=== PATIENT | female | born 1950 | race Caucasian/White ===

== ENCOUNTER 2020-03-27 11:40 | Emergency (ER) | payer OTHER ==
[2020-03-27 11:52] VITALS: BP 167/75; PULSE 83; TEMP 98; BMI 27.8
--- NOTE | 2020-03-27 12:30 | PDOC ---
History of Present Illness - General Chief Complaint: Diarrhea Stated Complaint: BOWEL MOVEMENT Time Seen by Provider: 03/27/20 12:01 Past History - Medical History Allergies/Adverse Reactions: Allergies Allergy/AdvReac Type Severity Reaction Status Date / Time erythromycin base Allergy Severe Rash Verified 03/27/20 11:44 [From E-Mycin] tetracycline [Tetracycline] Allergy Severe Rash Verified 03/27/20 11:44 enalaprilat dihydrate Allergy Unknown Rash Verified 03/27/20 11:44 [From Vasotec] memantine HCl [From Namenda] AdvReac Mild Verified 03/27/20 11:44 Home Medications: Ambulatory Orders Aspirin [Baby Aspirin] 81 mg PO DAILY 08/22/11 Nebivolol HCl [Bystolic] 10 mg PO DAILY tablet 12/22/14 levETIRAcetam [Keppra -] 750 mg PO BID tablet 12/21/15 Simvastatin [Zocor -] 20 mg PO HS 12/30/15 Vitamin E 400 unit PO DAILY 02/14/16 Hydrochlorothiazide [Hctz -] 12.5 mg PO DAILY 03/27/20 Losartan Potassium 100 mg PO DAILY 03/27/20 Mirtazapine 7.5 mg PO HS 03/27/20 Vitamin B Complex 1 each PO DAILY 03/27/20 Anemia: No Asthma: No Cancer: Yes (CERVICAL; [facility] 1995) Cardiac Disorders: No CVA: No COPD: No CHF: No Dementia: Yes Diabetes: Yes (DM2) GI Disorders: Yes (FECAL INCONTINENCE;IBS) Disorders: No HTN: Yes Hypercholesterolemia: No Liver Disease: No 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; BRAIN DAMAGE.) Thyroid Disease: No - Surgical History Abdominal Surgery: Yes (TOTAL ABDOMINAL HYSTERCTOMY) Appendectomy: No Cardiac Surgery: No Cholecystectomy: No Lung Surgery: No Neurologic Surgery: Yes (LAMINECTOMY 06/2011) Orthopedic Surgery: Yes (LUMBAR LAMINECTOMY 06/23/11) - Reproductive History Is Patient Now?: No - Psycho-Social/Smoking History Smoking History: Never smoked Have you smoked in the past 12 months: No Number of Cigarettes Smoked Daily: 0 Cigars Per Day: 0 - Substance Abuse Hx (Audit-C & DAST Scrn) How often the patient has a drink containing alcohol: Never Score: In Men: 4 or > Positive; In Women: 3 or > Positive: 0 Screen Result (Pos requires Nsg. Audit-10AR): Negative In the last yr the pt used illegal drug/Rx for NonMed reason: No Score: Yes response is considered Positive: 0 Screen Result (Positive result requires Nsg. DAST-10): Negative *Physical Exam - Vital Signs Last Vital Signs Temp Pulse Resp BP Pulse Ox 98 F 83 18 167/75 99 03/27/20 11:45 03/27/20 11:45 03/27/20 11:45 03/27/20 11:45 03/27/20 11:45 Discharge - Follow up/Referral Referrals: Ricki Maria MD [Primary Care Provider] - - Patient Discharge Instructions - Post Discharge Activity
[2020-03-27] MEDS ORDERED: LACTATED RINGERS SOLUTION 1,000 ML/1,000 ML INFUS.BAG IV STA (12:37)
[2020-03-27 13:20] LABS: BASO % 0.6 % (0-2.0); EOS % 0.8 % (0-4.5); HEMATOCRIT 42.1 % (32.4-45.2); HEMOGLOBIN 14.4 GM/dL (10.7-15.3); LYMPH % 18.8 % (8-40); MCH 30.8 pg (25.7-33.7); MCHC 34.2 g/dl (32.0-36.0); MEAN CELL VOLUME 89.8 fl (80-96); MEAN PLT VOLUME 8.4 fl (7.5-11.1); MONO % 5.8 % (3.8-10.2); PLATELET COUNT 199 K/MM3 (134-434); RBC 4.69 M/mm3 (3.60-5.2); RDW 13.7 % (11.6-15.6); WHITE BLOOD COUNT 8.3 K/mm3 (4.0-10.0)
[2020-03-27 13:26] LABS: URINE APPEARANCE CLEAR; URINE BILIRUBIN NEGATIVE (NEGATIVE); URINE COLOR YELLOW; URINE GLUCOSE (UA) NEGATIVE (NEGATIVE); URINE KETONE NEGATIVE (NEGATIVE); URINE LEUK ESTERASE NEGATIVE (NEGATIVE); URINE NITRITE NEGATIVE (NEGATIVE); URINE PROTEIN NEGATIVE (NEGATIVE); URINE UROBILINOGEN 0.2 mg/dL (0.2-1.0)
[2020-03-27 13:33] LABS: ALBUMIN 4.7 g/dl (3.4-5.0); BILIRUBIN,TOTAL 0.6 mg/dL (0.2-1); BLOOD UREA NITROGEN 7.3 mg/dL (7-18); CALCIUM 9.7 mg/dL (8.5-10.1); POTASSIUM 4.2 mmol/L (3.5-5.1); TOT PROT 7.2 g/dl (6.4-8.2)
--- NOTE | 2020-03-27 13:49 | PDOC ---
Documentation entered by Johnathon Coyne SCRIBE, acting as scribe for Larisa Reilly MD. Larisa Reilly MD: This documentation has been prepared by the Stanford hardy Aaron, SCRIBE, under my direction and personally reviewed by me in its entirety. I confirm that the documentation accurately reflects all work, treatment, procedures, and medical decision making performed by me. History of Present Illness - General Chief Complaint: Diarrhea Stated Complaint: BOWEL MOVEMENT Time Seen by Provider: 03/27/20 12:01 History Source: Patient Exam Limitations: No Limitations - History of Present Illness Initial Comments: 03/27/20 13:12 The patient is a 69 year old female with a significant PMH of HTN, HLD, seizures, dementia, and osteopenia who presents to the emergency department for diarrhea. Patient reports being awoken by back pain at 9 am which was followed by 1 episode of dark non-melena diarrhea. Patient endorses a history of chronic back pain. Patient denies abdominal pain, lightheadedness, nausea, vomiting, fever, hematuria, or any urinary symptoms. Patient denies any other symptoms. Allergies: erythromycin, tetracycline, enalaprilat dihydrate, memantine HCl Past surgical history: total abdominal hysterectomy, neurologic laminectomy ( 06/2011), lumbar laminectomy (06/23/11) PCP: Ricki Maria MD Past History - Medical History Allergies/Adverse Reactions: Allergies Allergy/AdvReac Type Severity Reaction Status Date / Time erythromycin base Allergy Severe Rash Verified 03/27/20 11:44 [From E-Mycin] tetracycline [Tetracycline] Allergy Severe Rash Verified 03/27/20 11:44 enalaprilat dihydrate Allergy Unknown Rash Verified 03/27/20 11:44 [From Vasotec] memantine HCl [From Namenda] AdvReac Mild Verified 03/27/20 11:44 Home Medications: Ambulatory Orders Aspirin [Baby Aspirin] 81 mg PO DAILY 08/22/11 Nebivolol HCl [Bystolic] 10 mg PO DAILY tablet 12/22/14 levETIRAcetam [Keppra -] 750 mg PO BID tablet 12/21/15 Simvastatin [Zocor -] 20 mg PO HS 12/30/15 Vitamin E 400 unit PO DAILY 02/14/16 Hydrochlorothiazide [Hctz -] 12.5 mg PO DAILY 03/27/20 Losartan Potassium 100 mg PO DAILY 03/27/20 Mirtazapine 7.5 mg PO HS 03/27/20 Vitamin B Complex 1 each PO DAILY 03/27/20 Anemia: No Asthma: No Cancer: Yes (CERVICAL; [facility] 1995) Cardiac Disorders: No CVA: No COPD: No CHF: No Dementia: Yes Diabetes: Yes (DM2) GI Disorders: Yes (FECAL INCONTINENCE;IBS) Disorders: No HTN: Yes Hypercholesterolemia: No Liver Disease: No 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; BRAIN DAMAGE.) Thyroid Disease: No - Surgical History Abdominal Surgery: Yes (TOTAL ABDOMINAL HYSTERCTOMY) Appendectomy: No Cardiac Surgery: No Cholecystectomy: No Lung Surgery: No Neurologic Surgery: Yes (LAMINECTOMY 06/2011) Orthopedic Surgery: Yes (LUMBAR LAMINECTOMY 06/23/11) - Reproductive History Is Patient Now?: No - Psycho-Social/Smoking History Smoking History: Never smoked Have you smoked in the past 12 months: No Number of Cigarettes Smoked Daily: 0 Cigars Per Day: 0 - Substance Abuse Hx (Audit-C & DAST Scrn) How often the patient has a drink containing alcohol: Never Score: In Men: 4 or > Positive; In Women: 3 or > Positive: 0 Screen Result (Pos requires Nsg. Audit-10AR): Negative In the last yr the pt used illegal drug/Rx for NonMed reason: No Score: Yes response is considered Positive: 0 Screen Result (Positive result requires Nsg. DAST-10): Negative Review of Systems - Review of Systems Able to Perform ROS?: Yes Comments:: 03/27/20 13:13 GEN: no fever, chills, night sweats, generalized weakness, malaise, or unintentional weight change HEENT: no ear pain, congestion, sore throat, vision change, or eye pain CV: no chest pain, palpitations, lightheadedness, syncope, or edema RESP: no cough, wheezing, or SOB GI: +diarrhea, no abdominal pain, nausea, vomiting, constipation, or white/black/bloody stool : no dysuria, hematuria, frequency, incontinence, retention, or discharge MSK: right low back pain (chronic baseline), otherwise no muscle weakness or pain, no joint swelling or pain NEURO: no headache, seizure, vertigo, imbalance, numbness, tingling, focal weakness, or difficulty walking/talking PSYCH: no insomnia, behavior change, SI, HI, or substance use SKIN: no prurtitis, excessive dryness, jaundice, rash, cuts, or unexplained bruises ROS otherwise negative except as noted in HPI *Physical Exam - Vital Signs Last Vital Signs Temp Pulse Resp BP Pulse Ox 98 F 83 18 167/75 99 03/27/20 11:45 03/27/20 11:45 03/27/20 11:45 03/27/20 11:45 03/27/20 11:45 - Physical Exam 03/27/20 13:15 GENERAL: very pleasant, forgetful, nontoxic-appearing, A/Ox4, no distress, answers questions appropriately, accompanied by hospital internship HEENT: PERRLA, EOMI, moist mucous membranes NECK/BACK: no midline ttp, no spinal stepoff or deformity, no hematoma, full ROM, neck supple CARDIOVASCULAR: regular rate/rhythm, no MGR, strong peripheral pulses, capillary refill <2 seconds, extremities wwp, no edema LUNGS/RESPIRATORY: no respiratory distress, CTAB GI/ABDOMEN: symmetric [id number], normoactive BS, soft, no ttp, no midline pulsatile masses : no CVA tenderness MSK/EXTREMITIES: no muscle atrophy, no acute deformity SKIN: warm and dry, no pallor, no jaundice, no rash, no pathologic-appearing bruising, no skin breakdown, no cuts, no lesions NEUROLOGICAL: GCS 15, CN II-XII grossly intact, 5/5 strength proximally and distally, no facial droop ED Treatment Course - LABORATORY CBC & Chemistry Diagram: 03/27/20 13:00 03/27/20 13:00 Medical Decision Making - Medical Decision Making 69YOF p/w diarrhea this morning. No recent antibiotics, camping, stream water drinking, travel out of the country, consumption of questionable or rotten food/drink, or exposures to individuals with GI symptoms. Initial Vital Signs Temp Pulse Resp BP Pulse Ox 98 F 83 18 167/75 99 03/27/20 11:45 03/27/20 11:45 03/27/20 11:45 03/27/20 11:45 03/27/20 11:45 DDX IBNLT: most likely viral syndrome, possibly medication effect. Very unlikely any bacterial infectious etiology i.e. staph aureus or salmonella or C. diff diarrhea as she has no risk factors for this. Will get labs to ensure no potassium or magnesium or other electrolyte imbalance. Will fluid resuscitate. Provider Orders Category Date Time Status CBC WITH DIFFERENTIAL Stat Lab 03/27/20 13:00 Completed COMP METABOLIC PANEL Stat Lab 03/27/20 13:00 Completed MAGNESIUM Stat Lab 03/27/20 13:00 Completed UA ([facility]) ONLY Stat Lab 03/27/20 13:00 Completed Lactated Ringers Solution Medication 03/27/20 12:37 Discontinued 1,000 ml in 1,000 ml IV ONCE Urine Culture [URINE CULTURE] Stat Micro 03/27/20 13:00 Completed Medications Discontinued Medications Generic Name Dose Route Start Last Admin Trade Name Freq PRN Reason Stop Dose Admin Lactated Ringer's 1,000 ml in 1,000 mls @ 1,000 mls/hr 03/27/20 12:37 03/27/20 12:58 Lactated Ringers Solution IV 03/27/20 13:36 1,000 mls/hr ONCE STA Administration Microbiology Tests 03/27/20 13:00 Urine Culture - Final Urine - Urine Clean Catch NO GROWTH OBTAINED Lab Results WBC 8.3 K/mm3 (4.0-10.0) 03/27/20 13:00 RBC 4.69 M/mm3 (3.60-5.2) 03/27/20 13:00 Hgb 14.4 GM/dL (10.7-15.3) 03/27/20 13:00 Hct 42.1 % (32.4-45.2) 03/27/20 13:00 MCV 89.8 fl (80-96) 03/27/20 13:00 MCH 30.8 pg (25.7-33.7) 03/27/20 13:00 MCHC 34.2 g/dl (32.0-36.0) 03/27/20 13:00 RDW 13.7 % (11.6-15.6) 03/27/20 13:00 Plt Count 199 K/MM3 (134-434) 03/27/20 13:00 MPV 8.4 fl (7.5-11.1) 03/27/20 13:00 Absolute Neuts (auto) 6.1 K/mm3 (1.5-8.0) 03/27/20 13:00 Neutrophils % 74.0 % (42.8-82.8) D 03/27/20 13:00 Lymphocytes % 18.8 % (8-40) D 03/27/20 13:00 Monocytes % 5.8 % (3.8-10.2) 03/27/20 13:00 Eosinophils % 0.8 % (0-4.5) 03/27/20 13:00 Basophils % 0.6 % (0-2.0) 03/27/20 13:00 Nucleated RBC % 0 % (0-0) 03/27/20 13:00 Sodium 140 mmol/L (136-145) 03/27/20 13:00 Potassium 4.2 mmol/L (3.5-5.1) 03/27/20 13:00 Chloride 107 mmol/L (98-107) 03/27/20 13:00 Carbon Dioxide 26 mmol/L (21-32) 03/27/20 13:00 Anion Gap 7 MMOL/L (8-16) L 03/27/20 13:00 BUN 7.3 mg/dL (7-18) 03/27/20 13:00 Creatinine 1.0 mg/dL (0.55-1.3) 03/27/20 13:00 Est GFR (CKD-EPI)AfAm 67.04 03/27/20 13:00 Est GFR (CKD-EPI)NonAf 57.84 03/27/20 13:00 Random Glucose 142 mg/dL (74-106) H 03/27/20 13:00 Calcium 9.7 mg/dL (8.5-10.1) 03/27/20 13:00 Magnesium 2.0 mg/dL (1.8-2.4) 03/27/20 13:00 Total Bilirubin 0.6 mg/dL (0.2-1) 03/27/20 13:00 AST 45 U/L (15-37) H 03/27/20 13:00 ALT 54 U/L (13-61) 03/27/20 13:00 Alkaline Phosphatase 59 U/L (45-117) 03/27/20 13:00 Total Protein 7.2 g/dl (6.4-8.2) 03/27/20 13:00 Albumin 4.7 g/dl (3.4-5.0) 03/27/20 13:00 Urine Color Yellow 03/27/20 13:00 Urine Appearance Clear 03/27/20 13:00 Urine pH 5.0 (5.0-8.0) D 03/27/20 13:00 Ur Specific [place] 1.013 (1.010-1.035) 03/27/20 13:00 Urine Protein Negative (NEGATIVE) 03/27/20 13:00 Urine Glucose (UA) Negative (NEGATIVE) 03/27/20 13:00 Urine Ketones Negative (NEGATIVE) 03/27/20 13:00 Urine Blood Negative (NEGATIVE) 03/27/20 13:00 Urine Nitrite Negative (NEGATIVE) 03/27/20 13:00 Urine Bilirubin Negative (NEGATIVE) 03/27/20 13:00 Urine Urobilinogen 0.2 mg/dL (0.2-1.0) 03/27/20 13:00 Ur Leukocyte Esterase Negative (NEGATIVE) 03/27/20 13:00 This Pt has gotten significant relief of symptoms while in the ED. On last reassessment, vitals are wnl, and exam is benign.Workup is not concerning for emergency-level pathology at this time.This Pt is appropriate for discharge with close outPt follow up.They are comfortable with this plan and will follow up with PCP in 1-3 days.Specific return precautions are discussed and they will come back to the ER if necessary Discharge - Discharge Information Problems reviewed: Yes Clinical Impression/Diagnosis: Acute exacerbation of chronic low back pain Diarrhea Qualifiers: Diarrhea type: unspecified type Qualified Code(s): R19.7 - Diarrhea, unspecified Condition: Stable Disposition: HOME - Admission No - Follow up/Referral Referrals: Ricki Maria MD [Primary Care Provider] - - Patient Discharge Instructions Patient Printed Discharge Instructions: DI for Diarrhea and Traveler's Diarrhea -- Adult Additional Instructions: You were seen in the ER for diarrhea. We did an exam, and labs, and there were no abnormalities. After our assessment, we do not believe you are having a medical emergency at this time, and we believe you are safe to go home. For the next 48 hours, focus on taking lots of fluids (water, electrolyte drinks, broth, etc.). You can go on a BRAT diet (bananas, rice, applesauce, toast), then slowly reintroduce normal foods as you are able. Please follow up with your primary care provider in 1-3 days. Call their clinic, tell them you were seen in the ER, and tell them you need a follow-up. If you have any new or worsening symptoms, especially increasing discomfort, blood in the stool, white or black stool, or other signs of infection (like fever), please come back to the ER at any time (24 hours a day). If you are having severe or life threatening symptoms, or symptoms that make it unsafe to drive or have someone drive you, please call 911. - Post Discharge Activity
== END 2020-03-27 14:45 | disposition home or self-care (01) ==
LOC: JER 11:40
PROC: 3E0337Z Introduction of Electrolytic and Water Balance Substance into Peripheral Vein, Percutaneous Approach (ICD-10-PCS; principal; 2020-03-27)
DX: M54.5 Low back pain (principal); R19.7 Diarrhea, unspecified
CPT/HCPCS: 36415; 80053; 81003; 83735; 85025; 87086; 99284-25